=== PATIENT | female | born 1995 | race Caucasian/White ===

== ENCOUNTER 2016-08-23 02:06 | Emergency (ER) | payer BC ==
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
== END 2016-08-23 02:24 | disposition disaster alternative care site (69) ==
LOC: GACC 02:06 → GMED 02:06 → GACC 02:24
DX: S80.212A Abrasion, left knee, initial encounter (principal); F41.9 Anxiety disorder, unspecified; V43.52XA Car driver injured in collision with other type car in traffic accident, initial encounter